=== PATIENT | male | born 1940 | race Caucasian/White ===

== ENCOUNTER 2024-12-06 17:47 | Inpatient (IN) | payer MEDICARE, OTHER, SELFPAY ==
--- NOTE | 2024-12-06 15:34 | EDRN ---
Patient went right to CT as soon as the patient got to the ED.
[2024-12-06 15:37] LABS: Glucose - Point of Care 105 mg/dl (70-99)
--- NOTE | 2024-12-06 15:37 | ED.CVA ---
History of Present Illness
General
Chief Complaint: CVA/TIA Symptoms
Time Seen by Provider: 12/06/24 15:37
Onset of Stroke Symptoms
Onset of symptoms known: Yes
Date of onset of symptoms: 12/06/24
Time of onset of symptoms: 14:30
Time pt last seen normal is known: Yes
Date last time pt seen normal: 12/06/24
History of Present Illness
History of Present Illness:
TIME OF INITIAL ENCOUNTER: 3:30 PM
HPI: At around 3 PM today, I spoke to EMS who indicates that the patient started having symptoms of expressive aphasia just before they were called. The patient told me that his symptoms started around 1 PM today. He states he was speaking
'gibberish'. Currently on initial evaluation as of 3:45 PM, he feels that his symptoms are markedly improved. He never had any loss of strength. He is not on any antiplatelets or anticoagulation. The patient was hypertensive for EMS with
pressures around 180/88. He had a normal blood sugar for EMS as well.
EXAM:
GENERAL: In no distress
HEENT: Moist oral mucosa
CARDIOVASCULAR: No murmurs, normal heart rate, regular rhythm, No chest wall tenderness
PULMONARY: No respiratory distress, breath sounds are clear and equal
ABDOMEN: Soft with no peritoneal signs, no tenderness
NEUROLOGIC: Excellent strength all extremities, no coordination deficits, normal finger-nose testing, mild expressive aphasia
PSYCHIATRIC: Appropriate mental status, normal insight and judgement
EXTREMITIES: Nontender, no edema, moves all extremities equally
SKIN: No rash, no lesions
NUMBER AND COMPLEXITY OF PROBLEMS ADDRESSED AT THE ENCOUNTER
� Chronic conditions affecting care: High blood pressure
� Acute Exacerbation and/or Progression of Chronic Illness: This is an acute problem
� Differential Diagnosis includes: CVA, TIA, hypoglycemia has been ruled out, vascular spasm
AMOUNT AND/OR COMPLEXITY OF DATA TO BE REVIEWED AND ANALYZED
� I performed an independent evaluation of and my interpretation is:
EKG: Sinus 83, nonspecific ST abnormality, left axis deviation
CT: CAT scan of the brain shows no acute abnormality
X-rays:
Laboratory Studies: CBC unremarkable, creatinine 1.5
Other:
� Review of other/old records: No old record available for review
� Clinical information was obtained by an independent historian: EMS, I spoke to the at bedside. She also tells me that they went on a walk yesterday and he had no symptoms.
� Prescriptions/Medications Considered but not given:
� Further testing considered but not performed:
RISK OF COMPLICATIONS AND/OR MORBIDITY OR MORTALITY OF PATIENT MANAGEMENT
� Social determinants of health affecting care: Lives at home with
� Discussion with other providers: I spoke Dr. Silva who agrees patient is not a TNK candidate as his symptoms have been rapidly improving. Hospitalist, Dr. Koenig for admission.
� Escalation of care including admission/observation vs risk of discharge considered: The patient is not a TNK candidate. states that his blood pressures have been labile. He is not on any antihypertensives here. We did
put him on aspirin and Plavix here.
ANY OTHER UPDATES:
Phy Exam
Physical Exam
Physical Exam:
See HPI
Course
Orders/Labs/Results
Orders:
Orders
12/06/24 15:26
Electrocardiogram (*1) Urgent
Reason for Study: Other
Other Reason for Exam: Possible Stroke
CT HEAD STROKE ALERT W/o Cont Urgent
Comment:
Reason For Exam: aphasia
Bedside Glucose- Treatment ONCE
Cardiac Monitoring- Treatment ONCE
IV Insert/Care/Rem.- Treatment PRN
Vital Signs As Directed
Frequency: Other
Weight As Directed
Frequency: Once
Comment: ZERO STRETCHER SCALE FOR ACCURATE WEIGHT
O2 Therapy [RESP] Urgent
Titrate/Wean O2 to maintain O2 sat greater than (%): 93
Special Instructions: MAINTAIN CONTINUOUS O2 SATS > OR = 93%
12/06/24 15:27
EKG- Treatment ONCE
12/06/24 15:49
Complete Blood Count/With Diff Urgent
Comprehensive Metabolic Panel Urgent
PTT Urgent
Prothrombin Time Urgent
Troponin I Urgent
12/06/24 15:57
Aspirin 325 mg PO NOW STA
12/06/24 16:33
MR Brain Without Contrast Routine
Comment:
Reason For Exam: TIA
OK for patient to be off Cardiac Monitoring for MRI: No
Recent pill cam endoscopy?: No
Clopidogrel Bisulfate [Plavix] 300 mg PO NOW STA
12/06/24 16:34
Hemoglobin A1c [Glycohemoglobin (HgbA1c)] Routine
Lipid Profile [Cardiovascular Evaluation] Routine
Carotid US [US Cerebrovascular] Routine
Comment:
Reason For Exam: TIA
12/06/24 16:39
Electrocardiogram (*1) Urgent
Reason for Study: TIA/Stroke
EKG- Treatment ONCE
12/06/24 18:00
Atorvastatin [Lipitor] 40 mg PO QPM
Abnormal Lab Results
12/06/24 12/06/24
15:36 15:49
Absolute Monos (auto) 0.7 H 10^3/uL
(0.1-0.6)
Monocytes % 12.4 H %
(1.7-9.3)
BUN 34 H mg/dl
(9-20)
Creatinine 1.5 H mg/dL
(0.7-1.3)
POC Glucose 105 H mg/dl
(70-99)
12/06/24 15:49
12/06/24 15:49
Vital Signs
Initial and Last Documented VS:
Initial Vital Signs
Temp Pulse Resp BP Pulse Ox
36.3 C 84 25 185/88 97
12/06/24 15:42 12/06/24 15:42 12/06/24 15:42 12/06/24 15:42 12/06/24 15:42
Last Documented Vital Signs
Temp Pulse Resp BP Pulse Ox
36.3 C 84 25 185/88 97
12/06/24 15:42 12/06/24 15:42 12/06/24 15:42 12/06/24 15:42 12/06/24 15:42
*Critical Care Note
Total Time (30-74mins, 75-104mins- exclusive of procedures): Not Applicable
ED Attending Note
-
Portions of this chart may have been created with voice recognition software.� Occasional wrong word or��sound alike� substitutions may have occurred due to the inherent limitations of voice recognition software.
Discharge Plan
Departure
Patient Disposition: Admit
Date of Disposition: 12/06/24
Time of Disposition: 16:30
Presentation/result/management discussed w/ accepting MD/DO: Hospitalist
Patient with high blood pressure during this ER visit?: Yes
Discharge Problem:
Acute cerebrovascular accident (CVA)
Referrals:
UNKNOWN - PT DOES,NOT KNOW [Family Provider] -
Interventions
Interventions:
*Risk Screen - Suicide Last Done: 12/06/24 15:42
*General Assessment Last Done: 12/06/24 15:42
*Neglect/Abuse Screening Last Done: 12/06/24 15:42
*ED- Fall Risk Assessment Last Done: 12/06/24 15:54
*ED COVID-19 Vaccine History Last Done: 12/06/24 15:54
ED- Neurological Assessment Last Done: 12/06/24 15:54
ED Swallowing Screen Last Done: 12/06/24 16:04
Discharge Date and Time
Print Language: LATVIAN
[2024-12-06 15:42] VITALS: BP 185/88
[2024-12-06 15:59] LABS: % Basophils 0.5 % (0-2); % Eosinophils 2.5 % (0-6); % Immature Granulocytes 0.4 % (0-0.5); % Lymphocytes 28.3 % (20.5-51.1); % Monocytes 12.4 % (1.7-9.3); % Neutrophils 55.9 % (42.2-75.2); Absolute Eosinophils 0.1 10^3/uL (0-0.7); Absolute Lymphocytes 1.6 10^3/uL (1.2-3.4); Absolute Monocytes 0.7 10^3/uL (0.1-0.6); Absolute Neutrophils 3.2 10^3/uL (1.4-6.5); Hematocrit 43.5 % (39.0-52.0); Hemoglobin 14.8 g/dL (13.0-18.0); Mean Corpuscular Hgb 29.9 pg (27.0-31.0); Mean Corpuscular Volume 87.9 fL (80.0-94.0); Mean Platelet Volume 10.3 fL (7.4-10.4); Nucleated Red Blood Cells % 0 % (-); Platelet Count 205 10^3/uL (130-400); Red Blood Cell Count 4.95 10^6/uL (4.70-6.10); Red Cell Dist. Width 13.1 % (11.5-14.5); White Blood Cell Count 5.7 10^3/uL (4.8-10.8)
[2024-12-06] MEDS: ASPIRIN 325 MG PO (16:05)
[2024-12-06 16:08] LABS: APTT 30.6 Sec (23.4-35.0); INR 1.06; PT 14.1 Sec (11.4-14.6)
[2024-12-06 16:09] LABS: ALT (SGPT) 15 U/L (0-50); AST (SGOT) 26 U/L (17-59); Albumin 3.8 g/dl (3.5-5.0); Alkaline Phosphatase 42 U/L (38-126); Blood Urea Nitrogen 34 mg/dl (9-20); Calcium 9.1 mg/dl (8.4-10.2); Carbon Dioxide 25 mmol/L (22-30); Chloride 107 mmol/L (98-107); Estimated Creatinine Clearance 42 ml/min; Glucose 99 mg/dl (70-99); Potassium 3.9 mmol/L (3.5-5.1); Sodium 140 mmol/L (135-145); Total Bilirubin 0.8 mg/dl (0.2-1.3); Total Protein 6.6 g/dl (6.3-8.2); eGFR 46.19
[2024-12-06 16:21] LABS: Troponin I < 0.012 ng/ml
--- NOTE | 2024-12-06 16:24 | CON.NEURO ---
Consultation
Order
Date of Consultation: 12/06/24
Requesting Provider: Hakeem Askew DO
Reason for Consult: Stroke alert
Called in at 15:12
Neurology Consultation Note.
HPI: This is an 84-year-old right-handed man who presented to [facility] on December 06, 2024 with language dysfunction. According to patient's spouse he had 20 minutes of expressive difficulties(speaking 'gibberish'.) that started
around 1 PM today prompting the family to seek medical attention. No reports of headache, change in vision, strength or sensation.
ER VS: 185/88, 84, afebrile.
EKG: Normal sinus rhythm
Labs: glucose�99, creatinine�1.5
CT head wo contrast- no acute abnormalities, mild volume loss
PMH: HTN, OA
PMH: BL cataract surgery, bilateral knee replacement
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
FH: Sister�stroke
All:NKDA
ROS: Constitutional: Negative. Negative for chills, fever and unexpected weight change.
HENT: Negative for ear pain, hearing loss, tinnitus and trouble swallowing.
Eyes: Negative. Negative for photophobia, pain and visual disturbance.
Respiratory: Negative for cough, choking and shortness of breath.
Cardiovascular: Negative for chest pain, palpitations and leg swelling.
Gastrointestinal: Negative for abdominal pain and vomiting.
Endocrine: Negative. Negative for cold intolerance.
Genitourinary: Negative for dysuria, flank pain and urgency.
Musculoskeletal: Negative for back pain, gait problem, neck pain and neck stiffness.
Skin: Negative for rash.
Allergic/Immunologic: Negative. Negative for immunocompromised state.
Neurological: positive for transient aphasia
Psychiatric/Behavioral: Negative for behavioral problems, confusion and hallucinations.
NIH Stroke Scale
1A Level of Consciousness: 0/3
1B LOC Questions: 0/2
1C LOC Commands: 0/2
2 Best Gaze: 0/2
3 Visual: 0/3
4 Facial Palsy: 0/3
5A Motor Arm LEFT: 0/4
5B Motor Arm RIGHT: 0/4
6A Motor Leg LEFT: 0/4
6B Motor Leg RIGHT: 0/4
7 Limb Ataxia: 0/2
8 Sensory: 0/2
9 Best Language: 0/3
10 Dysarthria: 0/2
11 Extinction/Inattention: 0/2
Total NIHSS: 0
Assessment and Plan:
I. TIA. Not a candidate for IV TNK due to symptoms resolution
II. HTN.
III. BEE
-Continue Telemetry monitoring
- Plavix load
- please obtain brain MRI without eleonora
- CTA head and neck
-DVT prophylaxis.
I personally reviewed all radiology and labs along with past medical records pertinent to current medical problems. Total time spent in patient care is 60 minutes.
Thank you for allowing us to participate in the care of this patient. We will continue to follow. Please do not hesitate to contact us with any questions or concerns.
Subjective/Objective
Subjective Data
Date of Service: December 06, 2024
Objective Data
Vital Signs
Temp Pulse Resp BP Pulse Ox
36.3 C 84 25 185/88 97
12/06/24 15:42 12/06/24 15:42 12/06/24 15:42 12/06/24 15:42 12/06/24 15:42
Lab Results
12/06/24 15:49
12/06/24 15:49
PT 14.1 Sec (11.4-14.6) 12/06/24 15:49
INR 1.06 12/06/24 15:49
APTT 30.6 Sec (23.4-35.0) 12/06/24 15:49
Sodium 140 mmol/L (135-145) 12/06/24 15:49
Potassium 3.9 mmol/L (3.5-5.1) 12/06/24 15:49
BUN 34 mg/dl (9-20) H 12/06/24 15:49
Glucose 99 mg/dl (70-99) 12/06/24 15:49
Calcium 9.1 mg/dl (8.4-10.2) 12/06/24 15:49
Patient Allergies
No Known Allergies Allergy (Verified 12/06/24 15:35)
Vital Signs and Labs
-
Vital Signs and Labs:
Vital Signs
Temp Pulse Resp BP Pulse Ox
36.3 C 84 25 185/88 97
12/06/24 15:42 12/06/24 15:42 12/06/24 15:42 12/06/24 15:42 12/06/24 15:42
Lab Results
12/06/24 15:49
12/06/24 15:49
PT 14.1 Sec (11.4-14.6) 12/06/24 15:49
INR 1.06 12/06/24 15:49
APTT 30.6 Sec (23.4-35.0) 12/06/24 15:49
Sodium 140 mmol/L (135-145) 12/06/24 15:49
Potassium 3.9 mmol/L (3.5-5.1) 12/06/24 15:49
BUN 34 mg/dl (9-20) H 12/06/24 15:49
Glucose 99 mg/dl (70-99) 12/06/24 15:49
Calcium 9.1 mg/dl (8.4-10.2) 12/06/24 15:49
[2024-12-06 16:30] VITALS: BP 172/95
--- NOTE | 2024-12-06 16:40 | HPS.HSE ---
Family Physician
-
Family Physician: NOT KNOW UNKNOWN - PT DOES
Chief Complaint
-
stroke alert for abnormal speech
History of Present Illness
- [facility] EMS for stroke alert
- report language and speech dysfunction.
- per spouse he had 20 minutes of expressive difficulties described as speaking 'gibberish' started around 1 PM today - called 911 by family to seek medical attention.
ROS:
No reports of headache, change in vision, strength or sensation.
ER VS: 185/88, 84, afebrile.
EKG: Normal sinus rhythm
Medical History
Past Medical History
Past Medical History: Reports None and Other
Past Surgical History: Reports None
Social History
Tobacco: Non-smoker
Alcohol: None
Family History
Family History: Not pertinent
Allergies / Home Medications
Allergies reflects when Allergies were last updated in [employer].
Home Medications with original date entered in [employer]
Allergy/Medication List:
Allergies
Allergy/AdvReac Type Severity Reaction Status Date / Time
No Known Allergies Allergy Verified 12/06/24 15:35
Home Medications
Magnesium Taurate 250 mg PO HS 12/06/24
ascorbic acid (vitamin C) 250 mg tablet (Vitamin C) 250 mg PO DAILY 12/06/24
ascorbic acid 100 mg-zinc sulfate 200 mg tablet 1 tab PO DAILY 12/06/24
ferrous sulfate 140 mg (45 mg iron) tablet,extended release 140 mg PO DAILY 12/06/24
olive leaf 500 mg capsule 500 mg PO DAILY 12/06/24
Review of Systems
-
Constitutional: Reports No Symptoms
EENT: Reports No Symptoms
Respiratory: Reports No Symptoms
Cardiac: Reports No Symptoms
Abdomen/GI: Reports No Symptoms
: Reports No Symptoms
Musculoskeletal: Reports No Symptoms
Skin: Reports No Symptoms
Neurological: Reports See HPI
Endocrine: Reports No Symptoms
Hematologic/Lymphatic: Reports No Symptoms
Psych: Reports No Symptoms
Physical Exam
Vital Signs
Vital Signs
Temp Pulse Resp BP Pulse Ox
97.4 F 84 25 185/88 97
12/06/24 15:42 12/06/24 15:42 12/06/24 15:42 12/06/24 15:42 12/06/24 15:42
Physical Exam
General: Well Developed, Well Nourished and No Apparent Distress
HEENT: NormoCephalic, Moist mucous membranes and Atraumatic
Respiratory: Clear
Cardiac: S1/S2 and Regular Rhythm; No Murmur or Rub
GI: Soft, Non Tender, Non Distended and Normal Bowel Sounds; No Organomegaly
Rectal: Deferred by Provider
Musculoskeletal: No Clubbing, No Cyanosis and No Edema
Skin: No Rash
Neuro: Nonfocal/grossly intact
Psych: Calm
Laboratory Results
-
12/06/24 15:49
12/06/24 15:49
Laboratory Results
PT 14.1 Sec (11.4-14.6) 12/06/24 15:49
INR 1.06 12/06/24 15:49
APTT 30.6 Sec (23.4-35.0) 12/06/24 15:49
Total Bilirubin 0.8 mg/dl (0.2-1.3) 12/06/24 15:49
AST 26 U/L (17-59) 12/06/24 15:49
ALT 15 U/L (0-50) 12/06/24 15:49
Alkaline Phosphatase 42 U/L (38-126) 12/06/24 15:49
Troponin I < 0.012 ng/ml 12/06/24 15:49
Data Reviewed
-
CT Scan: Report Reviewed by me
Lab Data: Labs Reviewed by me
Impression/Plan
-
Selected Entries
12/06/24
15:42
Temp 97.4 F
Pulse 84
Resp Rate 25
Blood pressure 185/88
SaO2 97
Oxygen Mode of Delivery Room air
Labs
12/06/24 12/06/24 12/06/24
15:36 15:49 16:34
WBC 5.7
Hgb 14.8
Plt Count 205
INR 1.06
BUN 34 H
Creatinine 1.5 H
eGFR 46.19
Hemoglobin A1c Pending
Troponin I < 0.012
POC Glucose 105 H
EKG
NORMAL SINUS RHYTHM
LEFT AXIS DEVIATION
ABNORMAL ECG
WHEN COMPARED WITH ECG OF 06-DEC-2024 15:43,
NO SIGNIFICANT CHANGE WAS FOUND
NO PRIOR hospitalist admission:
ASSESSMENT & PLAN
TIA: but not a candidate for IV TNK due to symptoms resolution
Stroke alert; [facility] EMS
abrupt onset of expressive aphasia onset just prior to EMS call,around 1p. Was speaking 'gibberish'
- NIHSS 1 for mild expressive aphasia.
- Hypertensive for EMS 180/88
- Nl BG
- Seen by Neurologist : Dr Silva
- ASA and Plavix loading
- Atorvastatin 40 qpm
- CUS of neck
- obtain brain MRI without eleonora
- Telemetry monitoring
- Neuro consulted
Hypertensive emergency
HX suggestive of labile BP for yrs ( SBP 120s - 150s) but not formally established HTN
- IV Hydralazine PRN for SBP > 185, DBP > 110
- Goal BP < 185/110 for now
Renal insufficiency of unknown chronicity
? HTN renal dz
Current Cr 1.5
- Trend Cr
- avoid IV contrast
DVT Px: SCD
Code: Full
IP TLM
[2024-12-06] MEDS: PLAVIX 300 MG PO (17:01)
[2024-12-06 17:04] VITALS: BP 181/109
[2024-12-06 18:00] VITALS: BP 154/88
[2024-12-06 18:14] LABS: HDL Cholesterol 35 mg/dl; LDL Cholesterol, Calculated 113 mg/dl; Total Cholesterol 167 mg/dl (50-199); Triglyceride 98 mg/dl (10-149); Very Low Density Lipoprotein 19 mg/dl (0-30)
[2024-12-06] MEDS: LIPITOR 40 MG PO (18:38)
[2024-12-06 19:25] VITALS: BP 158/88; BMI 26.4
[2024-12-06 23:30] VITALS: BP 154/85
[2024-12-07] VITALS (8 sets, daily range): BP systolic 130–152; BP diastolic 82–91; PULSE 86
[2024-12-07] MEDS: PLAVIX 75 MG PO (07:54)
[2024-12-07] MEDS: LOW STRENGTH ASPIRIN 81 MG PO (07:54)
[2024-12-07 08:19] LABS: Blood Urea Nitrogen 32 mg/dl (9-20); Carbon Dioxide 23 mmol/L (22-30); Chloride 111 mmol/L (98-107); Estimated Creatinine Clearance 42 ml/min; Glucose 117 mg/dl (70-99); HDL Cholesterol 33 mg/dl; LDL Cholesterol, Calculated 121 mg/dl; Potassium 4.2 mmol/L (3.5-5.1); Sodium 142 mmol/L (135-145); Total Cholesterol 166 mg/dl (50-199); Triglyceride 62 mg/dl (10-149); Very Low Density Lipoprotein 12 mg/dl (0-30); eGFR 46.19
[2024-12-07 08:47] LABS: Glycohemoglobin (HgbA1c) 5.6 % (4.0-5.6)
--- NOTE | 2024-12-07 11:12 | W.PN.NEURO.1 ---
Today's Communication / Plan
-
.
Subjective/Objective
Subjective Data
Date of Service: December 07, 2024
Neurology follow-up note.
Mr. Reese reports no complaints. His blood pressure has improved. Remains afebrile. No recurrent episodes of expressive aphasia. No reports of headache, motor, visual or sensory deficits.
LDL�121, hemoglobin A1c�5.6
PMH: HTN, OA
PMH: BL cataract surgery, bilateral knee replacement
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
FH: sister�stroke
All:NKDA
ROS: Constitutional: Negative. Negative for chills, fever and unexpected weight change.
HENT: Negative for ear pain, hearing loss, tinnitus and trouble swallowing.
Eyes: Negative. Negative for photophobia, pain and visual disturbance.
Respiratory: Negative for cough, choking and shortness of breath.
Cardiovascular: Negative for chest pain, palpitations and leg swelling.
Gastrointestinal: Negative for abdominal pain and vomiting.
Endocrine: Negative. Negative for cold intolerance.
Genitourinary: Negative for dysuria, flank pain and urgency.
Musculoskeletal: Negative for back pain, gait problem, neck pain and neck stiffness.
Skin: Negative for rash.
Allergic/Immunologic: Negative. Negative for immunocompromised state.
Neurological: positive for transient aphasia
General: Well developed. In no acute distress.
Cardio: Regular rate and rhythm without murmur. Extremities are without cyanosis or edema.
Neuro:
Mental Status: Alert, oriented to person, place, not to date. Impaired attention. Unable to do serial sevens. Follows complex requests. Able to name and repeat. No hemineglect.
Cranial Nerves: Pupils are equally round, surgical. EOMs full. Visual jacinto full to confrontation. Minimal left ptosis?. No nystagmus. V1-V3 intact to light touch and pinprick bilaterally, symmetric. Face symmetric. Mildly impaired hearing
AU. The palate elevated well. SCMs and traps 5/5. Tongue midline. No dysarthria.
Motor: Normal bulk and tone. No pronator or arm drift. Strength 5/5 throughout. No clonus.
Reflexes: Negative grasp
Sensory: Normal vibration at the toes
Coordination: No dysmetria or tremor.
Gait: deferred
Assessment and Plan:
I. TIA.
II. Mild encephalopathy
III.HTN
- Continue Telemetry monitoring
- Continue DAPT
- please obtain brain MRI without eleonora
- Carotid Doppler ultrasound
- TTE
- DVT prophylaxis.
- The case was discussed with patient's
I personally reviewed all radiology and labs along with past medical records pertinent to current medical problems. Total time spent in patient care is 45 minutes.
Thank you for allowing us to participate in the care of this patient. We will continue to follow. Please do not hesitate to contact us with any questions or concerns
Objective Data
Vital Signs
Temp Pulse Resp BP Pulse Ox
36.8 C 73 16 152/85 97
12/07/24 07:00 12/07/24 07:00 12/07/24 07:00 12/07/24 07:00 12/07/24 08:00
Lab Results
12/06/24 15:49
12/07/24 07:47
PT 14.1 Sec (11.4-14.6) 12/06/24 15:49
INR 1.06 12/06/24 15:49
APTT 30.6 Sec (23.4-35.0) 12/06/24 15:49
Sodium 142 mmol/L (135-145) 12/07/24 07:47
Potassium 4.2 mmol/L (3.5-5.1) 12/07/24 07:47
BUN 32 mg/dl (9-20) H 12/07/24 07:47
Glucose 117 mg/dl (70-99) H 12/07/24 07:47
Calcium 9.0 mg/dl (8.4-10.2) 12/07/24 07:47
LDL Cholesterol, Calc 121 mg/dl 12/07/24 07:47
Patient Allergies
No Known Allergies Allergy (Verified 12/06/24 15:35)
Vital Signs and Labs
-
Vital Signs and Labs:
Vital Signs
Temp Pulse Resp BP Pulse Ox
36.8 C 73 16 152/85 97
12/07/24 07:00 12/07/24 07:00 12/07/24 07:00 12/07/24 07:00 12/07/24 08:00
Lab Results
12/06/24 15:49
12/07/24 07:47
PT 14.1 Sec (11.4-14.6) 12/06/24 15:49
INR 1.06 12/06/24 15:49
APTT 30.6 Sec (23.4-35.0) 12/06/24 15:49
Sodium 142 mmol/L (135-145) 12/07/24 07:47
Potassium 4.2 mmol/L (3.5-5.1) 12/07/24 07:47
BUN 32 mg/dl (9-20) H 12/07/24 07:47
Glucose 117 mg/dl (70-99) H 12/07/24 07:47
Calcium 9.0 mg/dl (8.4-10.2) 12/07/24 07:47
LDL Cholesterol, Calc 121 mg/dl 12/07/24 07:47
Medications
-
Medications:
Generic Name Dose Route Start Last Admin
Trade Name Freq PRN Reason Stop Dose Admin
Acetaminophen 650 mg 12/06/24 19:28
Acetaminophen 650 Mg Rectal Suppository RECTAL 01/03/25 19:27
Q4HPRN PRN
VARGAS, mild pain, or temp >100.4F
Acetaminophen 650 mg 12/06/24 19:28
Acetaminophen 325 Mg Tablet PO 01/03/25 19:27
Q4HPRN PRN
VARGAS, mild pain, or temp >100.4F
Aspirin 81 mg 12/07/24 08:00 12/07/24 07:54
Aspirin 81 Mg Chewable Tablet PO 01/04/25 07:59 81 mg
DAILY MEGHA Administration
Atorvastatin Calcium 40 mg 12/06/24 18:00 12/06/24 18:38
Atorvastatin (Lipitor) 20 Mg Tablet PO 01/03/25 17:59 40 mg
QPM MEGHA Administration
Clopidogrel Bisulfate 75 mg 12/07/24 08:00 12/07/24 07:54
Clopidogrel 75 Mg Tablet PO 01/04/25 07:59 75 mg
DAILY MEGHA Administration
Hydralazine HCl 5 mg 12/06/24 19:28
Hydralazine 20 Mg/Ml Vial IV 01/03/25 19:27
Q6HPRN PRN
SBP > 185, DBP > 110
Sodium Chloride 0 flush 12/06/24 20:00
Sodium Chloride 0.9% (Flush) Syringe IV 01/03/25 19:59
PER PROTOCOL MEGHA
Home Medications
-
Home Medications
Magnesium Taurate 250 mg PO HS 12/06/24
ascorbic acid (vitamin C) 250 mg tablet (Vitamin C) 250 mg PO DAILY 12/06/24
ascorbic acid 100 mg-zinc sulfate 200 mg tablet 1 tab PO DAILY 12/06/24
ferrous sulfate 140 mg (45 mg iron) tablet,extended release 140 mg PO DAILY 12/06/24
olive leaf 500 mg capsule 500 mg PO DAILY 12/06/24
--- NOTE | 2024-12-07 12:01 | W.PN.HOSP.TC ---
Today's Communication/Plan
-
DAPT
Statin
ECHO
MR Brain
Amlodipine tomorrow
HTN control, permissive htn ok for today
PT/OT/ST
Assessment / Plan
Assessment / Plan
General: Well developed. In no acute distress.
Cardio: Regular rate and rhythm without murmur. Extremities are without cyanosis or edema.
Neuro:
Mental Status: Alert, oriented to person, place, not to date. Impaired attention. Unable to do serial sevens. Follows complex requests. Able to name and repeat. No hemineglect.
Respiratory: Clear
GI: Soft, Non Tender, Non Distended and Normal Bowel Sounds; No Organomegaly
Rectal: Deferred by Provider
Musculoskeletal: No Clubbing, No Cyanosis and No Edema
Skin: No Rash
Neuro: Nonfocal/grossly intact
Psych: Calm
#TIA
#Acute metabolic encephalopathy
This appears to be improving
� Continue telemetry monitoring
� Continue DAPT
� Statin
� Brain MRI
� Carotid Doppler ultrasound
� TTE
�Neurology consulted
-pt/ot/st
#Hyperlipidemia
� Initiate statin
#Hypertensive emergency
-HX suggestive of labile BP for yrs ( SBP 120s - 150s) but not formally established HTN
-Permissive hypertension for 24 hours
-Blood pressures have improved to 150 systolic
BEE v CKD
-i suspect CKD
-monitor
-WIll hold on ACEI initiation due to ?renal function
-start amlodipine tomorrow
DVT Px: HSQ
Code: Full
Anticipated Discharge: 24 - 48 hours
Subjective/Interval History
-
Date of Service: December 07, 2024
symptoms have improved somewhat; passed bedside swallow
Objective Data
-
Labs:
Laboratory Results
12/07/24
07:47
Sodium 142
Potassium 4.2
Chloride 111 H
Carbon Dioxide 23
BUN 32 H
Creatinine 1.5 H
Glucose 117 H
Calcium 9.0
Vital Signs:
Vital Signs
Temp Pulse Resp BP Pulse Ox
98.2 F 73 16 152/85 97
12/07/24 07:00 12/07/24 07:00 12/07/24 07:00 12/07/24 07:00 12/07/24 08:00
Review of Systems
-
History Source: Patient
All other systems: Not reviewed unless documented
Data Reviewed
-
CT Scan: Image personally visualized and interpreted and Report Reviewed by me
Labs: Labs Reviewed by me
[2024-12-07] MEDS: HEPARIN 5000 UNITS SC ×2 (15:30→23:53)
[2024-12-07] MEDS: LIPITOR 40 MG PO (17:14)
[2024-12-08] VITALS (7 sets, daily range): BP systolic 120–161; BP diastolic 69–98; PULSE 70; O2SAT 97
[2024-12-08 07:35] LABS: Hematocrit 42.7 % (39.0-52.0); Hemoglobin 14.3 g/dL (13.0-18.0); Mean Corp Hgb Conc. 33.5 g/dL (33.0-37.0); Mean Corpuscular Hgb 29.5 pg (27.0-31.0); Mean Platelet Volume 10.7 fL (7.4-10.4); Platelet Count 161 10^3/uL (130-400); Red Blood Cell Count 4.85 10^6/uL (4.70-6.10); Red Cell Dist. Width 13.2 % (11.5-14.5); White Blood Cell Count 4.8 10^3/uL (4.8-10.8)
[2024-12-08 08:24] LABS: ALT (SGPT) 15 U/L (0-50); AST (SGOT) 25 U/L (17-59); Albumin 3.5 g/dl (3.5-5.0); Alkaline Phosphatase 44 U/L (38-126); Blood Urea Nitrogen 30 mg/dl (9-20); Calcium 9.4 mg/dl (8.4-10.2); Carbon Dioxide 23 mmol/L (22-30); Chloride 110 mmol/L (98-107); Estimated Creatinine Clearance 45 ml/min; Glucose 88 mg/dl (70-99); Magnesium 2.2 mg/dl (1.6-2.3); Potassium 4.2 mmol/L (3.5-5.1); Sodium 141 mmol/L (135-145); Total Bilirubin 0.8 mg/dl (0.2-1.3); Total Protein 6.2 g/dl (6.3-8.2); eGFR 50.18
[2024-12-08] MEDS: PLAVIX 75 MG PO (08:29)
[2024-12-08] MEDS: NORVASC 5 MG PO (08:30)
[2024-12-08] MEDS: HEPARIN 5000 UNITS SC ×3 (08:30→23:15)
[2024-12-08] MEDS: LOW STRENGTH ASPIRIN 81 MG PO (08:30)
--- NOTE | 2024-12-08 08:59 | PTOTSP ---
SPEECH THERAPY SWALLOW EVALUATION:
Patient exhibits grossly functional oropharyngeal swallow at this time. Recommend continue Regular texture diet/thin liquids. Meds as best tolerated. General aspiration precautions. No skilled ST services are indicated at this time.
Patient exhibits grossly functional speech/language and cognitive communication skills as observed during informal assessment. Patient reported feeling back at baseline for speech/language skills following brief episode of 'garbled' speech prior to
admission. Given that MRI showed no evidence of acute infarct, no skilled ST services appear indicated at this time. ST to sign off.
RECOMMEND:
1) Regular texture diet/thin liquids
2) Meds as best tolerated
3) General aspiration precautions
4) no skilled ST services appear indicated at this time
--- NOTE | 2024-12-08 09:00 | CM ---
Patient with Dx TIA. Room air. PT/OT Evals; no needs.
Met with patient who resides with his in a 2 story house with 1 [address]ARK[address].
The patient was independent in ADLs and ambulation.
The patient was active, he works in his garden, works on his house and drives.
The patient has no home phone or cell phone.
The Vaibhav has a cell [phone].
DME - RW, SPC, hearing aides
No prior VN or SNF.
PCP - [facility] in [place]
Pharmacy - [facility]
Offered patient VN and he declined.
No CM d/c needs identified.
Plan home.
--- NOTE | 2024-12-08 11:34 | W.PN.NEURO.1 ---
Addendum entered and electronically signed by Katty Silva MD 12/08/24 11:46:
Brain MRI wo eleonora-1. No MRI evidence for acute infarct.
2. 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
3. Mild white matter leukoaraiosis in the frontal lobes.
4. 7 mm chronic lacunar infarct or dilated perivascular space in the left basal ganglia.
5. Moderate diffuse cerebral and cerebellar volume loss.
6. TINY CHRONIC INTRAPARENCHYMAL MICROHEMORRHAGES in the body of the right caudate nucleus and in the left putamen.
7. 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
8. 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 Mild edema or myelomalacia in the cervical spinal cord
at the C4/C5 level.
Recommendations:
- Outpatient Holter monitoring, C-spine MRI wo eleonora
Original Note:
Today's Communication / Plan
-
.
Subjective/Objective
Subjective Data
Date of Service: December 08, 2024
Neurology follow-up note.
Mr. Reese reports no complaints. No recurrent episodes of expressive aphasia. No reports of headache, motor, visual or sensory deficits.
LDL�121, hemoglobin A1c�5.6
PMH: HTN, OA
PMH: BL cataract surgery, bilateral knee replacement
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
FH: sister�stroke
All:NKDA
ROS: Constitutional: Negative. Negative for chills, fever and unexpected weight change.
HENT: Negative for ear pain, hearing loss, tinnitus and trouble swallowing.
Eyes: Negative. Negative for photophobia, pain and visual disturbance.
Respiratory: Negative for cough, choking and shortness of breath.
Cardiovascular: Negative for chest pain, palpitations and leg swelling.
Gastrointestinal: Negative for abdominal pain and vomiting.
Endocrine: Negative. Negative for cold intolerance.
Genitourinary: Negative for dysuria, flank pain and urgency.
Musculoskeletal: Negative for back pain, gait problem, neck pain and neck stiffness.
Skin: Negative for rash.
Allergic/Immunologic: Negative. Negative for immunocompromised state.
Neurological: positive for transient aphasia
General: Well developed. In no acute distress.
Cardio: Regular rate and rhythm without murmur. Extremities are without cyanosis or edema.
Neuro:
Mental Status: Alert, oriented to person, place, not to date. Impaired attention. Unable to do serial 7s. Follows complex requests. Able to name and repeat. No hemineglect.
Cranial Nerves: Pupils are equally round, surgical. EOMs full. Visual jacinto full to confrontation. Minimal left ptosis?. No nystagmus. V1-V3 intact to light touch and pinprick bilaterally, symmetric. Face symmetric. Mildly impaired hearing
AU. The palate elevated well. SCMs and traps 5/5. Tongue midline. No dysarthria.
Motor: Normal bulk and tone. No pronator or arm drift. Strength 5/5 throughout. No clonus.
Reflexes: Negative grasp
Coordination: No dysmetria or tremor.
Gait: deferred
Assessment and Plan:
I. TIA.
II. Mild encephalopathy
III. HTN
- Continue Telemetry monitoring
- Continue DAPT
- Carotid Doppler ultrasound
- TTE
- DVT prophylaxis.
I personally reviewed all radiology and labs along with past medical records pertinent to current medical problems. Total time spent in patient care is 35 minutes.
Thank you for allowing us to participate in the care of this patient. We will continue to follow. Please do not hesitate to contact us with any questions or concerns
Objective Data
Vital Signs
Temp Pulse Resp BP Pulse Ox
36.7 C 68 18 138/86 97
12/08/24 07:00 12/08/24 07:00 12/08/24 07:00 12/08/24 07:00 12/08/24 08:00
Lab Results
12/08/24 05:52
12/08/24 05:52
PT 14.1 Sec (11.4-14.6) 12/06/24 15:49
INR 1.06 12/06/24 15:49
APTT 30.6 Sec (23.4-35.0) 12/06/24 15:49
Sodium 141 mmol/L (135-145) 12/08/24 05:52
Potassium 4.2 mmol/L (3.5-5.1) 12/08/24 05:52
BUN 30 mg/dl (9-20) H 12/08/24 05:52
Glucose 88 mg/dl (70-99) 12/08/24 05:52
Calcium 9.4 mg/dl (8.4-10.2) 12/08/24 05:52
LDL Cholesterol, Calc 121 mg/dl 12/07/24 07:47
Patient Allergies
No Known Allergies Allergy (Verified 12/06/24 15:35)
Vital Signs and Labs
-
Vital Signs and Labs:
Vital Signs
Temp Pulse Resp BP Pulse Ox
36.7 C 68 18 138/86 97
12/08/24 07:00 12/08/24 07:00 12/08/24 07:00 12/08/24 07:00 12/08/24 08:00
Lab Results
12/08/24 05:52
12/08/24 05:52
PT 14.1 Sec (11.4-14.6) 12/06/24 15:49
INR 1.06 12/06/24 15:49
APTT 30.6 Sec (23.4-35.0) 12/06/24 15:49
Sodium 141 mmol/L (135-145) 12/08/24 05:52
Potassium 4.2 mmol/L (3.5-5.1) 12/08/24 05:52
BUN 30 mg/dl (9-20) H 12/08/24 05:52
Glucose 88 mg/dl (70-99) 12/08/24 05:52
Calcium 9.4 mg/dl (8.4-10.2) 12/08/24 05:52
LDL Cholesterol, Calc 121 mg/dl 12/07/24 07:47
Medications
-
Medications:
Generic Name Dose Route Start Last Admin
Trade Name Freq PRN Reason Stop Dose Admin
Acetaminophen 650 mg 12/06/24 19:28
Acetaminophen 650 Mg Rectal Suppository RECTAL 01/03/25 19:27
Q4HPRN PRN
VARGAS, mild pain, or temp >100.4F
Acetaminophen 650 mg 12/06/24 19:28
Acetaminophen 325 Mg Tablet PO 01/03/25 19:27
Q4HPRN PRN
VARGAS, mild pain, or temp >100.4F
Amlodipine Besylate 5 mg 12/08/24 08:00 12/08/24 08:30
Amlodipine 5 Mg Tablet PO 01/05/25 07:59 5 mg
DAILY MEGHA Administration
Aspirin 81 mg 12/07/24 08:00 12/08/24 08:30
Aspirin 81 Mg Chewable Tablet PO 01/04/25 07:59 81 mg
DAILY MEGHA Administration
Atorvastatin Calcium 40 mg 12/06/24 18:00 12/07/24 17:14
Atorvastatin (Lipitor) 20 Mg Tablet PO 01/03/25 17:59 40 mg
QPM MEGHA Administration
Clopidogrel Bisulfate 75 mg 12/07/24 08:00 12/08/24 08:29
Clopidogrel 75 Mg Tablet PO 01/04/25 07:59 75 mg
DAILY MEGHA Administration
Heparin Sodium 5,000 units 12/07/24 16:00 12/08/24 08:30
Heparin 5,000 Units/Ml 1 Ml Vial SC 01/04/25 15:59 5,000 units
Q8 MEGHA Administration
Hydralazine HCl 5 mg 12/06/24 19:28
Hydralazine 20 Mg/Ml Vial IV 01/03/25 19:27
Q6HPRN PRN
SBP > 185, DBP > 110
Sodium Chloride 0 flush 12/06/24 20:00
Sodium Chloride 0.9% (Flush) Syringe IV 01/03/25 19:59
PER PROTOCOL MEGHA
Home Medications
-
Home Medications
Magnesium Taurate 250 mg PO HS 12/06/24
ascorbic acid (vitamin C) 250 mg tablet (Vitamin C) 250 mg PO DAILY 12/06/24
ascorbic acid 100 mg-zinc sulfate 200 mg tablet 1 tab PO DAILY 12/06/24
ferrous sulfate 140 mg (45 mg iron) tablet,extended release 140 mg PO DAILY 12/06/24
olive leaf 500 mg capsule 500 mg PO DAILY 12/06/24
--- NOTE | 2024-12-08 12:25 | W.PN.HOSP.TC ---
Today's Communication/Plan
-
ECHO
Carotid US
pt/ot
Assessment / Plan
Assessment / Plan
General: Well developed. In no acute distress.
Cardio: Regular rate and rhythm without murmur. Extremities are without cyanosis or edema.
Neuro:
Mental Status: Alert, oriented to person, place, not to date. Impaired attention. Unable to do serial sevens. Follows complex requests. Able to name and repeat. No hemineglect.
Respiratory: Clear
GI: Soft, Non Tender, Non Distended and Normal Bowel Sounds; No Organomegaly
Rectal: Deferred by Provider
Musculoskeletal: No Clubbing, No Cyanosis and No Edema
Skin: No Rash
Neuro: Nonfocal/grossly intact
Psych: Calm
#TIA
#Acute metabolic encephalopathy
This appears to be improving
� Continue telemetry monitoring
� Continue DAPT
� Statin
� Brain MRI - see report; no acute infarct, although has chronic lacunar infarct and tiny chronic intraparenchymal microhemorrhages. Severe spinal cord compression and central canal stenosis
� Carotid Doppler ultrasound
� TTE
�Neurology consulted
-pt/ot/st
�Outpatient Holter monitoring
#Severe spinal cord compression and central canal stenosis at C4/C5
� C-spine MRI without eleonora, outpt
- no neurological symptoms to reflect sensomotor compromise at this time
-NSG f/u outpt
#Hyperlipidemia
� Initiate statin
#Hypertensive emergency
-HX suggestive of labile BP for yrs ( SBP 120s - 150s) but not formally established HTN
-Permissive hypertension for 24 hours
-Blood pressures have improved to 150 systolic
BEE v CKD
-i suspect CKD
-monitor
-WIll hold on ACEI initiation due to ?renal function
-start amlodipine
DVT Px: HSQ
Code: Full
Anticipated Discharge: Within 24 hours
Subjective/Interval History
-
Date of Service: December 08, 2024
no acute events
Objective Data
-
Labs:
Laboratory Results
12/08/24
05:52
WBC 4.8
Hgb 14.3
Hct 42.7
Plt Count 161 D
Sodium 141
Potassium 4.2
Chloride 110 H
Carbon Dioxide 23
BUN 30 H
Creatinine 1.4 H
Glucose 88
Calcium 9.4
Total Bilirubin 0.8
AST 25
ALT 15
Alkaline Phosphatase 44
Vital Signs:
Vital Signs
Temp Pulse Resp BP Pulse Ox
97.5 F 87 16 130/87 97
12/08/24 11:00 12/08/24 11:00 12/08/24 11:00 12/08/24 11:00 12/08/24 11:00
I&O
12/07/24 12/08/24 12/09/24
06:59 06:59 06:59
Intake Total 240 / 240
Balance 240 / 240
Review of Systems
-
History Source: Patient
All other systems: Not reviewed unless documented
Data Reviewed
-
CT Scan: Image personally visualized and interpreted and Report Reviewed by me
MRI: Report Reviewed by me
Labs: Labs Reviewed by me
[2024-12-08] MEDS: LIPITOR 40 MG PO (17:15)
[2024-12-09 03:32] VITALS: BP 139/72
--- NOTE | 2024-12-09 06:47 | W.PN.HOSP.TC ---
Addendum entered and electronically signed by Aguila Abbott MD 12/09/24 17:36:
EEG appreciated likely unremarkable for age.
Original Note:
Today's Communication/Plan
-
discharge
Assessment / Plan
Assessment / Plan
Physical
General: no acute distress, appears comfortable at this time, ambulating without need for assist device
HEENT: normocephalic atraumatic, moist mucous membrane, hard of hearing
Cardio: S1/S2 Regular rate and rhythm without murmur. Extremities are without cyanosis or edema.
Respiratory: Clear to auscultation b/l
GI: Soft, Non Tender, Non Distended and Normal Bowel Sounds; No Organomegaly
Musculoskeletal: No Clubbing, No Cyanosis and No Edema
Skin: No Rash
Neuro: AOx3 conversant coherent
Psych: Calm
84M HTN OA b/l cataract sx b/l knee replacements here for TIA
#TIA
#Acute metabolic encephalopathy
This appears to be improving
� Continue telemetry monitoring
� Continue DAPT 21 days then aspirin alone
� Statin
� Brain MRI - see report; no acute infarct, although has chronic lacunar infarct and tiny chronic intraparenchymal microhemorrhages. Severe spinal cord compression and central canal stenosis
� Carotid Doppler ultrasound appreciated no significant stenosis
� TTE appreciated EF 50-55% mild aortic regurgitation
�Neurology consult appreciated
-pt/ot appreciated outpt therapy recommended
-ST appreciated no needs
�Outpatient Holter monitoring with cardiology recommended
#Severe spinal cord compression and central canal stenosis at C4/C5
- denies neck pain, no significant weakness upper ext's noted
�outpt C-spine MRI w/o contrast recommended, outpt orthopedic biomedical equipment support specialist follow up recommended.
#Hyperlipidemia
� Initiated statin, cont
#Hypertensive urgency
-completed Permissive hypertension for 24 hours
-Blood pressure since improved on Amlodipine 5 mg daily
#Likely CKD III
Renal function stable Likely Cr Baseline 1.4-1.5
DVT Px: HSQ
Code: Full
Medically stable for discharge home with outpatient follow up recommendations.
Discussed with patient and patient's Vaibhav
Total Time Preparing Discharge ___40____ minutes including examination of the patient, summary of the hospital stay, instructions for continuing care to all relevant caregivers; and preparation of discharge records, prescriptions, and referral
forms if necessary.
Anticipated Discharge: Today
Subjective/Interval History
-
Date of Service: December 09, 2024
No acute distress. Ambulating without issues or need for assist device. Reports feeling well. Eager to go home. Vaibhav present during evaluation.
Objective Data
-
Labs:
Laboratory Results
12/09/24
06:28
WBC Pending
Hgb Pending
Hct Pending
Plt Count Pending
Sodium Pending
Potassium Pending
Chloride Pending
Carbon Dioxide Pending
BUN Pending
Creatinine Pending
Glucose Pending
Calcium Pending
Total Bilirubin Pending
AST Pending
ALT Pending
Alkaline Phosphatase Pending
Vital Signs:
Vital Signs
Temp Pulse Resp BP Pulse Ox
98.0 F 75 18 139/72 98
12/09/24 03:32 12/09/24 03:32 12/09/24 03:32 12/09/24 03:32 12/09/24 03:32
I&O
12/07/24 12/08/24 12/09/24
06:59 06:59 06:59
Intake Total 240 / 240 1320 / 1320
Balance 240 / 240 1320 / 1320
[2024-12-09 07:00] VITALS: BP 146/85
[2024-12-09 08:27] LABS: Mean Corp Hgb Conc. 33.3 g/dL (33.0-37.0); Mean Corpuscular Hgb 29.4 pg (27.0-31.0); Mean Corpuscular Volume 88.2 fL (80.0-94.0); Mean Platelet Volume 11.3 fL (7.4-10.4); Platelet Count 188 10^3/uL (130-400); Red Blood Cell Count 4.76 10^6/uL (4.70-6.10); Red Cell Dist. Width 13.2 % (11.5-14.5); White Blood Cell Count 5.7 10^3/uL (4.8-10.8)
[2024-12-09] MEDS: LOW STRENGTH ASPIRIN 81 MG PO (08:36)
[2024-12-09] MEDS: NORVASC 5 MG PO (08:36)
[2024-12-09] MEDS: PLAVIX 75 MG PO (08:36)
[2024-12-09] MEDS: HEPARIN 5000 UNITS SC (08:36)
[2024-12-09 09:12] LABS: ALT (SGPT) 14 U/L (0-50); AST (SGOT) 23 U/L (17-59); Albumin 3.5 g/dl (3.5-5.0); Alkaline Phosphatase 44 U/L (38-126); Blood Urea Nitrogen 36 mg/dl (9-20); Calcium 9.1 mg/dl (8.4-10.2); Carbon Dioxide 25 mmol/L (22-30); Chloride 109 mmol/L (98-107); Estimated Creatinine Clearance 42 ml/min; Glucose 91 mg/dl (70-99); Potassium 4.1 mmol/L (3.5-5.1); Sodium 140 mmol/L (135-145); Total Bilirubin 0.8 mg/dl (0.2-1.3); Total Protein 6.1 g/dl (6.3-8.2); eGFR 46.19
[2024-12-09 11:00] VITALS: BP 141/77
[2024-12-09 15:00] VITALS: BP 139/78
--- NOTE | 2024-12-09 16:33 | EEG.RPT ---
Electroencephalogram Report
Recording
Date of EE12/09/24
Type of EEG: Routine
Length of EEG recordin minutes
Done with Video Recording: Yes
Patient Status: Inpatient
Recording Conditions: Awake and Drowsy
Hyperventilation Performed: No
Photic Stimulation Performed: Yes
Report
LESS THAN 1 HOUR EEG REPORT
LESS THAN 1 HOUR EEG INTERPRETATION:
Likely unremarkable EEG for age
CLINICAL CORRELATION:
Although normative values not been established for a person of this advanced age, the patient�s symmetry of the background suggests that this study was unremarkable.
A normal EEG does not rule out a diagnosis of epilepsy. If clinical suspicion for seizure persists, a prolonged recording may be warranted.
Clinical correlation is advised.
METHODS:
A 21 channel digitized electroencephalogram (EEG) was performed using the 10/20 international system of electrode placement and one-lead of ECG recorded. The [employer] quantitative review system was utilized.
ELECTROENCEPHALOGRAPHER IMPRESSION(S):
Quality of study
Good
Background
There was an unremarkable anterior-posterior voltage gradient of alpha frequency.
With eye opening the background activity changed to a low voltage mixture of frequencies.
There were no significant asymmetries of background activity noted.
Sleep
Drowsiness present
Photic Stimulation
No driving
ECG
Normal sinus rhythm
[2024-12-09] MEDS: HEPARIN SC (16:40)
--- NOTE | 2024-12-09 17:35 | W.DCSUMMARY ---
Discharge Summary
Discharge Data
Date of Admission: 12/06/24
Date of Discharge: 12/09/24
-
Pending Results: No
Discharge Plan
-
Patient Disposition: Home (Routine Discharge)
Discharge Diagnosis/Procedures: Transient Ischemic Attack (TIA)
Acute metabolic encephalopathy
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
Hyperlipidemia
Hypertensive urgency
Chronic Kidney Disease stage III
Condition: Fair
Diet: Low Cholesterol and 2 Gram Sodium
Activity: As tolerated
Driving Restrictions: Not until seen by your Dr
Bathing Restrictions: None
Blood Work: Please repeat BMP with primary care provider in 1 week of discharge.
Others Tests: Follow up with Cardiology for outpatient Holter monitor in 1-2 weeks of discharge.
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
Other Services: PT
Activity Restrictions/Additional Instructions:
Please follow up with primary care provider in 1 week of discharge, Cardiology in 1-2 weeks of discharge, Orthopedic in 2-4 weeks of discharge, and neurology in 1 month of discharge.
Aspirin and statin have been started for TIA, stroke risk reduction
Plavix has also been started for TIA, stroke risk reduction. Last day for Plavix is December 26, 2024.
Amlodipine has been started for hypertension.
Please keep a daily log of your blood pressures at home to review with your primary care provider in follow up for evaluation treatment hypertension.
Please take medications as prescribed/recommended and follow up with primary care provider and/or other healthcare provider involved in your care for refills and/or further adjustment to your medication regimen as necessary.
Referrals:
Damon Garcia MD [Active] - in one month
Antonio Florian MD [Active] - in two to four weeks
UNKNOWN - PT DOES,NOT KNOW [Family Provider] -
Tae Hunter, DO [Active] - in one to two weeks
Prescriptions:
New
clopidogrel 75 mg Tablet
75 mg PO DAILY Qty: 17 0RF
Rx Instructions:
December 26, 2024 is your last day for Plavix.
amlodipine 5 mg Tablet
5 mg PO DAILY Qty: 30 0RF
aspirin 81 mg Tablet,Chewable
81 mg PO DAILY Qty: 30 0RF
atorvastatin 40 mg tablet
40 mg PO QPM Qty: 30 0RF
Continued
ascorbic acid-zinc sulfate 100-200 mg Tablet
1 tab PO DAILY
ferrous sulfate 140 mg (45 mg iron) Tablet Extended Release
140 mg PO DAILY
olive leaf 500 mg Capsule
500 mg PO DAILY
Magnesium Taurate
250 mg PO HS
ascorbic acid (vitamin C) [Vitamin C] 250 mg Tablet
250 mg PO DAILY
Discharge Orders:
Discharge Patient (As Directed); Ordered 12/09/24
Ordered By: Aguila Abbott
Discharge Date and Time
Print Language: [id number]
[2024-12-09] MEDS: LIPITOR 40 MG PO (17:55)
== END 2024-12-09 18:08 | disposition home or self-care (01) | DRG 69 ==
LOC: 4 WEST ACU 17:47
PROVIDERS: Internal Medicine; ADMITTING PHYSICIAN Internal Medicine; ATTENDING PHYSICIAN Internal Medicine; CONSULT PHYSICIAN Psychiatry & Neurology Neurology; EMERGENCY PHYSICIAN Emergency Medicine
DX: G45.9 Transient cerebral ischemic attack, unspecified (principal); G93.41 Metabolic encephalopathy; G99.2 Myelopathy in diseases classified elsewhere; I16.1 Hypertensive emergency; R47.01 Aphasia; N17.9 Acute kidney failure, unspecified; E78.5 Hyperlipidemia, unspecified; M48.02 Spinal stenosis, cervical region; N18.30 Chronic kidney disease, stage 3 unspecified; I12.9 Hypertensive chronic kidney disease with stage 1 through stage 4 chronic kidney disease, or unspecified chronic kidney disease; Z96.653 Presence of artificial knee joint, bilateral; R29.701 NIHSS score 1; Z79.899 Other long term (current) drug therapy
CPT/HCPCS: 70450; 70551; 80048; 80053; 80061; 82962; 83036; 83735; 84484; 85025; 85027; 85610; 85730; 92610; 93005; 93306; 93880; 95816; 97116; 97162; 97165; 99285